=== PATIENT | male | born 1930 | race Caucasian/White ===

== ENCOUNTER → 2019-02-10 | Outpatient (REF) | payer MEDICARE | LOC: M LAB LCGH 15:25 | PROVIDERS: ATTEND Family Medicine | DX: C44.509 Unspecified malignant neoplasm of skin of other part of trunk (principal) ==

== ENCOUNTER → 2019-02-17 | Outpatient (REF) | payer MEDICARE | LOC: M LAB LCGH 17:14 | PROVIDERS: ATTEND Family Medicine | DX: C44.622 Squamous cell carcinoma of skin of right upper limb, including shoulder (principal) ==

== ENCOUNTER → 2019-07-06 | Outpatient (REF) | LOC: M LAB LCGH 10:53 | PROVIDERS: ATTEND Family Medicine | DX: C44.612 Basal cell carcinoma of skin of right upper limb, including shoulder (principal) ==